=== PATIENT | female | born 1995 | race Caucasian/White ===

== ENCOUNTER 2017-11-03 10:15 | Emergency (ER) | payer MEDICAID ==
[~2017-11-03] VITALS: Ht 152.4 cm; Wt 61.7 kg
[2017-11-03 10:20] VITALS: Ht 152.4 cm; Wt 61.7 kg
[2017-11-03 10:46] LABS: BASOPHIL % 0.3 % (0-2); PLATELET COUNT 333 x10^3mcL (130-400)
[2017-11-03 10:48] LABS: RED CELL DISTRIBUTION WIDTH 17.4 % (11.5-14.5)
[2017-11-03 11:02] LABS: microscopic required? YES; urine erythrocyte NEGATIVE (NEGATIVE)
[2017-11-03 11:09] LABS: CHLORIDE SERUM 105 mmol/L (98-107); CREATININE SERUM 0.7 mg/dL (0.6-1.0); GFR1 > 60 mL/min; GLUCOSE SERUM 76 mg/dL (74-106); SODIUM SERUM 140 mmol/L (136-145)
[2017-11-03 11:13] LABS: ALBUMIN 3.7 g/dL (3.4-5.0); ALKALINE PHOSPHATASE 76 U/L (46-116); ALT/SGPT 17 U/L (14-59); AST/SGOT 12 U/L (15-37); BILIRUBIN TOTAL 0.4 mg/dL (0.20-1.00); TOTAL PROTEIN, SERUM 7.2 g/dL (6.4-8.2)
[2017-11-03 12:45] VITALS: BP 141/74
== END 2017-11-03 12:45 | disposition home or self-care (01) ==
LOC: ED 10:15
PROVIDERS: Emergency Medicine
DX: O23.41 Unspecified infection of urinary tract in pregnancy, first trimester (principal); O34.81 Maternal care for other abnormalities of pelvic organs, first trimester; N83.202 Unspecified ovarian cyst, left side; Z3A.01 Less than 8 weeks gestation of pregnancy; J45.909 Unspecified asthma, uncomplicated
CPT/HCPCS: 36415

== ENCOUNTER 2017-11-12 10:42 | Emergency (ER) | payer MEDICAID ==
[~2017-11-12] VITALS: Ht 152.4 cm; Wt 61.2 kg
[2017-11-12 10:50] VITALS: Ht 152.4 cm; Wt 61.2 kg
[2017-11-12 11:41] LABS: microscopic required? YES; urine erythrocyte NEGATIVE (NEGATIVE)
[2017-11-12 12:02] LABS: BASOPHIL % 0.2 % (0-2); PLATELET COUNT 297 x10^3mcL (130-400)
[2017-11-12 12:15] LABS: CALCIUM 9.2 mg/dL (8.5-10.1); CHLORIDE SERUM 102 mmol/L (98-107); CREATININE SERUM 0.6 mg/dL (0.6-1.0); GFR1 > 60 mL/min; GLUCOSE SERUM 72 mg/dL (74-106); POTASSIUM SERUM 3.8 mmol/L (3.5-5.1); SODIUM SERUM 138 mmol/L (136-145)
[2017-11-12 12:29] LABS: ALBUMIN 3.6 g/dL (3.4-5.0); ALKALINE PHOSPHATASE 65 U/L (46-116); ALT/SGPT 16 U/L (14-59); AST/SGOT 14 U/L (15-37); BILIRUBIN TOTAL 0.16 mg/dL (0.20-1.00); T4(THYROXINE) 9.4 ug/dL (4.7-13.3); TOTAL PROTEIN, SERUM 7.1 g/dL (6.4-8.2)
[2017-11-12 13:32] VITALS: BP 105/63
== END 2017-11-12 13:32 | disposition home or self-care (01) ==
LOC: ED 10:42
PROVIDERS: Emergency Medicine
DX: O23.41 Unspecified infection of urinary tract in pregnancy, first trimester (principal); J45.909 Unspecified asthma, uncomplicated; Z3A.08 8 weeks gestation of pregnancy
CPT/HCPCS: 36415; 83880

== ENCOUNTER 2017-12-31 03:45 | Emergency (ER) | payer MEDICAID ==
[~2017-12-31] VITALS: Ht 152.4 cm; Wt 61.7 kg
[2017-12-31 03:50] VITALS: Ht 152.4 cm; Wt 61.7 kg
[2017-12-31 05:07] VITALS: BP 111/76
== END 2017-12-31 05:07 | disposition home or self-care (01) ==
LOC: ED 03:45
DX: O26.892 Other specified pregnancy related conditions, second trimester (principal); Z3A.15 15 weeks gestation of pregnancy; R51 Headache; J45.909 Unspecified asthma, uncomplicated
CPT/HCPCS: Q0162

== ENCOUNTER 2019-03-16 22:30 | Emergency (ER) | payer MEDICAID ==
[~2019-03-16] VITALS: Ht 152.4 cm; Wt 65.3 kg
[2019-03-17 01:03] VITALS: BP 112/62
== END 2019-03-17 01:03 | disposition home or self-care (01) ==
LOC: ED 22:30
DX: R09.1 Pleurisy (principal); J06.9 Acute upper respiratory infection, unspecified; N39.0 Urinary tract infection, site not specified; J45.909 Unspecified asthma, uncomplicated
CPT/HCPCS: J1885